=== PATIENT | male | born 1995 | race Caucasian/White ===

== ENCOUNTER 2017-04-20 16:18 | Emergency (ER) | payer OTHER ==
[~2017-04-20] VITALS: Ht 152.4 cm; Wt 52.3 kg
[2017-04-20] MEDS ORDERED: COLA100C5 PO (16:28)
[2017-04-20] MEDS ORDERED: ANUSOL HC CREAM 30GM TOP ONE (17:30)
[2017-04-20] MEDS ORDERED: HYDR25OI TOP (17:37)
[2017-04-20 17:44] VITALS: BP 126/71
== END 2017-04-20 17:54 | disposition home or self-care (01) ==
LOC: M ED 16:18
DX: K64.4 Residual hemorrhoidal skin tags (principal); F17.200 Nicotine dependence, unspecified, uncomplicated; Z79.899 Other long term (current) drug therapy; Z91.89 Other specified personal risk factors, not elsewhere classified